=== PATIENT | male | born 1955 | race Caucasian/White ===

== ENCOUNTER 2019-02-15 15:11 | Observation (INO) ==
--- NOTE | 2019-02-15 16:50 | Diag Imaging Result Doc PS360 ---
EXAM: CT HEAD/C-SPINE W/O CONTRAST INDICATION: fall with altered mental status TECHNIQUE: This exam was performed using automated exposure control, adjustment of mA or kV according to patient size, and/or use of iterative reconstruction technique. COMPARISON: None. FINDINGS: Head: There is no definite acute infarct given the limited sensitivity of CT versus MRI. There is no discrete intracranial mass, mass effect, or intracranial hemorrhage. There is a small posterior scalp hematoma that is partially out of the [id number]. The calvaria is intact. C-spine: There is multilevel degenerative disc disease with loss of disc spine is high and marginal osteophyte formation that is most significant at C5-C6 where there is moderate bony central canal narrowing. Otherwise, there is no discrete fracture, subluxation, or intrinsic osseous lesion. The surrounding soft tissues are essentially unremarkable. IMPRESSION: 1.No evidence of acute intracranial pathology. 2.Multilevel degenerative disc disease but no evidence of fracture or other definite acute C-spine injury. Electronically signed by Efren Palomares 02/15/2019 4:48 PM
--- NOTE | 2019-02-15 16:58 | Diag Imaging Result Doc PS360 ---
EXAM: TRAUMA SHOULDER RIGHT INDICATION: fall with right shoulder pain TECHNIQUE: 4 views COMPARISON: None. FINDINGS: There are humeral head bone anchors indicating prior rotator cuff repair. There is a subtle linear lucency that traverses the scapula. This may represent a nutrient channel as it cannot be seen on the scapular Y view. A nondisplaced fracture is possible, however. There is no other discrete fracture, dislocation, or significant intrinsic osseous lesion. The visualized joint spaces are essentially unremarkable. The surrounding soft tissues are essentially unremarkable. IMPRESSION: Vague linear lucency traversing the inferior scapula. Please see above discussion. Electronically signed by Efren Palomares 02/15/2019 4:56 PM
--- NOTE | 2019-02-15 16:59 | Diag Imaging Result Doc PS360 ---
EXAM: CHEST-PORTABLE INDICATION: trauma, right shoulder pain TECHNIQUE: One view COMPARISON: None. FINDINGS: The lungs are grossly clear. There is no discrete pleural fluid collection or pneumothorax. The cardiomediastinal silhouette and central vasculature are grossly unremarkable. IMPRESSION: No evidence of acute pathology by plain radiograph. Electronically signed by Efren Palomares 02/15/2019 4:56 PM
[2019-02-15 17:01] LABS: BASO# 0.02 X1000 (0.0-0.2); BASO% 0.2 % (0.0-0.8); EOS# 0.01 X1000 (0.0-0.7); EOS% 0.1 % (0.0-10.0); HEMATOCRIT 42.7 % (42.0-52.0); HEMOGLOBIN 14.4 g/dL (14.0-18.0); IMM GRAN# 0.05 X1000 (0.0-0.04); IMM GRAN% 0.4 % (0.0-0.5); LYMPH# 1.33 X1000 (1.2-3.4); LYMPH% 10.1 % (20.5-51.1); MCHC 33.7 g/dL (33-37); MCV 91.8 FL (81-99); MONO# 0.63 X1000 (0.11-0.59); MONO% 4.8 % (1.7-9.3); MPV 9.4 FL (7.4-10.4); NEUT# 11.19 X1000 (1.4-6.5); NEUT% 84.4 % (42.2-75.2); PLT 193 X1000 (130-400); RBC 4.65 XMIL (4.7-6.1); RDW 12.6 % (11.5-14.5); WBC 13.23 X1000 (4.8-10.8)
[2019-02-15 17:14] LABS: INR 0.97
[2019-02-15 17:21] LABS: AGAP 17; ALB/GLOB RATIO 1.7; ALBUMIN 4.1 g/dL (3.5-5.0); ALKALINE PHOSPHATASE 102 U/L (32-122); BUN 19 mg/dL (8-22); CALCIUM 8.8 mg/dL (8.8-10.2); CHLORIDE 101 mmol/L (98-107); COSMO 283; ESTIMATED GFR > 60; GLUCOSE 125 mg/dL (70-104); GOT 41 U/L (10-34); GPT 32 U/L (10-44); POTASSIUM 3.3 mmol/L (3.5-5.1); SODIUM 140 mmol/L (136-145); TCO2 22 mmol/L (25-35); TOTAL BILIRUBIN 0.61 mg/dL (0.20-1.00); TOTAL PROTEIN 6.5 g/dL (6.3-8.3)
--- NOTE | 2019-02-15 17:21 | PROVIDER DOCUMENTATION ---
This chart was entered by Ann Villarreal Scribe, acting as scribe for Joel Anguiano MD. HPI-Head Injury - General Chief Complaint: Fall Stated Complaint: FALL/HEAD INJURY Time Seen by Provider: 02/15/19 15:29 Source: patient, family ( and Son) Allergies/Adverse Reactions: Patient Allergies Allergy/AdvReac Type Severity Reaction Status Date / Time No Known Allergies Allergy Verified 02/15/19 17:16 - History of Present Illness-Head Injury Nature of Presenting Problem: 63 y/o male presents to the ED with head injury and occipital scalp laceration and forgetfulness after fall from ladder. Son states he found the patient on the ground with the ladder he was using displaced. states she received the call about fall around 1430 hours. His tetanus status is unknown Head Injury Location: reports: occipital Other injuries associated with incident:: reports: head Quality of Pain: reports: none Onset/Duration: reports: other (1430) Timing: reports: still present Method of Injury: reports: fell Any recent trauma/injury?: reports: to head Loss of Consciousness: unsure Injury Associated Symptoms: reports: joint pain (right shoulder). denies: back/neck pain, headaches Similar Symptoms Previously?: No Recently seen or treated by another doctor?: No Review of Systems - Adult - REVIEW OF SYSTEMS - ADULT Constitutional: reports: no symptoms reported Eyes: reports: no symptoms reported Ears, Nose, Mouth & Throat: denies: tinnitus, epistaxis, mouth/dental pain Cardiovascular: reports: no symptoms reported Respiratory: reports: no symptoms reported Gastrointestinal: denies: diarrhea, nausea, vomiting Genitourinary: reports: no symptoms reported Musculoskeletal: reports: joint pain (right shoulder pain). denies: back pain, neck pain Integumentary: reports: other (laceration to occipital scalp). denies: hives, rash Neurological: reports: other (forgetful). denies: dizziness/vertigo, headache/migraines, slurred speech Psychiatric: reports: no symptoms reported Endocrine: reports: no symptoms reported Hematologic/Lymphatic: reports: no symptoms reported Allergic/Immunologic: reports: no symptoms reported All Other Systems: Reviewed and Negative Past History - Adult - PAST MEDICAL HISTORY-ADULT Review of Records: reports: Old Records Reviewed, Nursing Assessment Review, Medications Reviewed - IMMUNIZATION STATUS Childhood Immunizations: See Nurse Assessment Flu Vaccine: See Nurse Assessment - SOCIAL HISTORY Smoking: non-smoker Substance Use: none/never Living Situation: family Physical Exam- Neurological - Physical Exam-Neuro Initial Vital Signs Reviewed: Yes General Appearance: alert, other (oriented to time, place and person but cannot name the President) HENMT: TMs normal (no hemotympanium), other (4 cm laceration to occipital scalp with minimal bleeding) Head Injury: other (4 cm laceration to occipital scalp with minimal bleeding). negative: Callaway's Sign, raccoon eyes Neck: full range of motion, supple. negative: other (vertebral tenderness) Respiratory: lungs clear, normal breath sounds. 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 laceration to occipital scalp) - Glascow Coma Scale Best Eye Response: (4) open spontaneously Best Verbal Response: (5) oriented Best Motor Response: (6) obeys commands Progress - PLAN OF CARE/RESULTS Progress/Plan/Lab Results: Vital Signs - 8 hr 02/15/19 15:16 02/15/19 16:54 Temperature 97.4 F L Pulse Rate 70 70 Respiratory Rate 18 14 Blood Pressure 123/74 127/79 O2 Sat by Pulse Oximetry 95 99 Laboratory Results - last 24 hr 02/15/19 02/15/19 02/15/19 16:44 16:44 16:44 WBC 13.23 H RBC 4.65 L Hgb 14.4 Hct 42.7 MCV 91.8 MCH 31.0 MCHC 33.7 RDW Std Deviation 12.6 Plt Count 193 MPV 9.4 Immature Gran % (Auto) 0.4 Neut % (Auto) 84.4 H Lymph % (Auto) 10.1 L [place]enton % (Auto) 4.8 Eos % (Auto) 0.1 Baso % (Auto) 0.2 Immature Gran # (Auto) 0.05 H Neut # (Auto) 11.19 H Lymph # (Auto) 1.33 Denton # (Auto) 0.63 H Eos # (Auto) 0.01 Baso # (Auto) 0.02 PT INR Sodium 140 Potassium 3.3 L Chloride 101 Carbon Dioxide 22 L Anion Gap 17 BUN 19 Creatinine 1.0 Estimated GFR/1.73 m2 > 60 BUN/Creatinine Ratio 19 Glucose 125 H Calculated Osmolality 283 Calcium 8.8 Total Bilirubin 0.61 AST 41 H ALT 32 Alkaline Phosphatase 102 Creatine Kinase 255 H Creatine Kinase Index 2.3 CK-MB (CK-2) 5.77 H Total Protein 6.5 Albumin 4.1 Globulin 2.4 Albumin/Globulin Ratio 1.7 Plasma/Serum Ethyl Alc 23 H Blood Type Antibody Screen 02/15/19 02/15/19 16:44 16:44 WBC RBC Hgb Hct MCV MCH MCHC RDW Std Deviation Plt Count MPV Immature Gran % (Auto) Neut % (Auto) Lymph % (Auto) Denton % (Auto) Eos % (Auto) Baso % (Auto) Immature Gran # (Auto) Neut # (Auto) Lymph # (Auto) Denton # (Auto) Eos # (Auto) Baso # (Auto) PT 13.0 INR 0.97 Sodium Potassium Chloride Carbon Dioxide Anion Gap BUN Creatinine Estimated GFR/1.73 m2 BUN/Creatinine Ratio Glucose Calculated Osmolality Calcium Total Bilirubin AST ALT Alkaline Phosphatase Creatine Kinase Creatine Kinase Index CK-MB (CK-2) Total Protein Albumin Globulin Albumin/Globulin Ratio Plasma/Serum Ethyl Alc Blood Type O NEGATIVE Antibody Screen NEGATIVE Orders Category Date Time Status Laceration Set up DIRECTED Care 02/15/19 15:34 Active Nursing [[facility] [place]. NRSG Communication Order] DIRECTED Care 02/15/19 15:35 Ac tive Saline Loc NOW Care 02/15/19 15:30 Active CHEST-PORTABLE [RAD] Stat Exams 02/15/19 15:[address] HEAD/C-SPINE W/O CONTRAST [CT] Stat Exams 02/15/19 15:32 Completed TRAUMA SHOULDER RIGHT [RAD] Stat Exams 02/15/19 15:32 Completed ALCOHOL BLOOD Stat Lab 02/15/19 16:44 Completed CBC WITH ELECTRONIC DIFF [HEME] Stat Lab 02/15/19 16:44 Completed CK PROFILE [SP CHEM] Stat Lab 02/15/19 16:44 Completed COMPREHENSIVE METABOLIC PANEL [CHEM] Stat Lab 02/15/19 16:44 Completed PROTIME WITH INR [COAG] Stat Lab 02/15/19 16:44 Completed TYPE & SCREEN [BBK] Stat Lab 02/15/19 16:44 Completed URINALYSIS W/POSS RFLX CULT [URINALYSIS] Stat Lab 02/15/19 15:29 Uncollected URINE DRUG SCREEN Stat Lab 02/15/19 15:30 Uncollected Acetaminophen [Ofirmev 1000 mg/Isotonic Soln] Med 02/15/19 18:15 Active 1,000 mg in 100 ml IV Q6H Diph,Pertuss(Acell),Tet Vac/Pf [Boostrix Vaccine] Med 02/15/19 17:24 Discontinued 0.5 ml IM .ONCE ONE EKG [EKG] Stat Ther 02/15/19 15:34 Draft Result Diagrams: 02/15/19 16:44 02/15/19 16:44 - REASSESSMENT Reassessment #1 Time Reassessed: 17:19 Status: unchanged (Patient is awake, follows commands. Son states that he is begining to remember things but is concern because he does not remember a lot. Discussed investigations: Neg CT head and c-spine and suspicion for non displaced scapular #) - XRAY 1 XRAY Study: Chest (EXAM: CHEST-PORTABLE INDICATION: trauma, right shoulder pain TECHNIQUE: One view COMPARISON: None. FINDINGS: The lungs are grossly clear. There is no discrete pleural fluid collection or pneumothorax. The ca rdiomediastinal silhouette and central vasculature are grossly unremarkable. IMPRESSION: No evidence of acute pathology by plain radiograph. Electronically signed by Efren Palomares 02/15/2019 4:56 PM) 2 XRAY: Right XRAY Study: Shoulder (EXAM: TRAUMA SHOULDER RIGHT INDICATION: fall with right shoulder pain TECHNIQUE: 4 views COMPARISON: None. FINDINGS: There are humeral head bone anchors indicating prior rotator cuff repair. There is a subtle linear lucency that traverses the scapula. This may represent a nutrient channel as it cannot be seen on the scapular Y view. A nondisplaced fracture is possible, however. There is no other discrete fracture, dislocation, or significant intrinsic osseous lesion. The visualized joint spaces are essentially unremarkable. The surrounding soft tissues are essentially unremarkable. IMPRESSION: Vague linear lucency traversing the inferior scapula. Please see above discussion. Electronically signed by Efren Palomares 02/15/2019 4:56 PM) - CT/MRI 1 CT Study: Cervical Spine, Head Impression: See EMR Report (EXAM: CT HEAD/C-SPINE W/O CONTRAST INDICATION: fall with altered mental status TECHNIQUE: This exam was performed using automated exposure control, adjustment of mA or kV according to patient size, and/or use of iterative reconstruction technique. COMPARISON: None. FINDINGS: Head: There is no definite acute infarct given the limited sensitivity of CT versus MRI. There is no discrete intracranial mass, mass effect, or intracranial hemorrhage. There is a small posterior scalp hematoma that is partially out of the [id number]. The calvaria is intact. C-spine: There is multilevel degenerative disc disease with loss of disc spine is high and marginal osteophyte formation that is most significant at C5-C6 where there is moderate bony central canal narrowing. Otherwise, there is no discrete fracture, subluxation, or intrinsic osseous lesion. The surrounding soft tissues are essentially unremarkable. IMPRESSION: 1.No evidence of acute intracranial pathology. 2.Multilevel degenerative disc disease but no evidence of fracture or other definite acute C-spine injury. Electronically signed by Efren Palomares 02/15/2019 4:48 PM) - CONSULTS/PCP/HOSPITALIST Notification #1 *Consult/PCP/Hospitalist*: Patient pcp Dr Martini Time Discussed: 18:27 Consult Disposition: Admit (will come to admit for observation) Procedures - LACERATION/WOUND REPAIR/FB Occipital Wound Location: Other: occipital Wound's Depth, Shape: superficial, linear Wound Explored/Foreign Body: clean Irrigated with Saline?: Yes Prepped with: Betadine Wound Debrided: none Wound Repaired with: Hooker-Large (5 jennifer applied) Sterile Dressing Applied?: Yes Splint Applied?: No Sling Applied?: No Procedure Comment: Patient tolerated procedure. done without anesthesia. No complication Departure - Departure Date of Disposition Decision: 02/15/19 Time of Disposition Decision: 18:24 DIAGNOSIS: Head injury due to trauma Qualifiers: Encounter type: initial encounter Qualified Code(s): S09.90XA - Unspecified injury of head, initial encounter Concussion Qualifiers: Encounter type: initial encounter Loss of consciousness presence/duration: without LOC Qualified Code(s): S06.0X0A - Concussion without loss of cons ciousness, initial encounter Occipital scalp laceration Qualifiers: Encounter type: initial encounter Qualified Code(s): S01.01XA - Laceration without foreign body of scalp, initial encounter Scapula fracture Qualifiers: Encounter type: initial encounter Scapula location: body Fracture type: closed Fracture alignment: nondisplaced Laterality: right Qualified Code(s): S42.114A - Nondisplaced fracture of body of scapula, right shoulder, initial encounter for closed fracture Disposition: ADMITTED INPATIENT 09 Certified Medical Emergency: Emergent Condition: Good Referrals and Follow-Ups: Luis M Martini MD [Primary Care Provider] - - Critical Care Note This patient required my direct & personal management of CC.: No Attestation - Physician/ KENROY Attestation Patient care was provided by Advanced Practice Provider:: No The physician spent face to face time with patient:: Yes Advanced Practice Provider documentation review:: Supervising physician onsite and consulted in the evaluation and care of this patient. The physician did have a face to face encounter with the patient. This chart was documented by the indicated scribe, (Ann Villarreal, Scr aguila) and accurately reflects the services I performed and decisions made by me, Joel Anguiano MD, as attested by the provider's signature.
[2019-02-15] MEDS ORDERED: BOOSTRIX VACCINE IM ONE (17:24)
[2019-02-15 17:26] LABS: CK PROFILE 255 U/L (24-204)
[2019-02-15 17:46] LABS: CK INDEX 2.3 (0.0-2.5); CK-MB 5.77 ng/mL (0.0-5.0)
--- NOTE | 2019-02-15 17:48 | EKG Report ---
Test Performed on : 02/15/2019 5:35:45 PM Test Reason : CP Blood Pressure : / mmHG Vent. Rate : 077 BPM Atrial Rate : 076 BPM P-R Int : 000 ms QRS Dur : 096 ms QT Int : 402 ms P-R-T Axes : 000 068 046 degrees QTc Int : 454 ms Accelerated Junctional rhythm. Abnormal ECG No previous ECGs available Unconfirmed Result
[2019-02-15] MEDS ORDERED: OFIRMEV 1000 MG/ISOTONIC SOLN 1,000 MG/100 ML BOTTLE IV SCH (18:15)
[2019-02-15] MEDS ORDERED: TYLENOL PO ONE (18:59)
[2019-02-15 19:39] LABS: URINE SOURCE CLEAN CATCH
[2019-02-15 19:44] LABS: BILIRUBIN URINE NEGATIVE (NEGATIVE); BLOOD URINE TRACE (NEGATIVE); COLOR YELLOW; GLUCOSE URINE NEGATIVE (NEGATIVE); KETONE URINE 20 mg/dL (NEGATIVE); LEUKOCYTES URINE NEGATIVE (NEGATIVE); NITRITE URINE NEGATIVE (NEGATIVE); PROTEIN URINE 30 mg/dL (NEGATIVE); SP GRAVITY URINE 1.024; TURBIDITY URINE CLEAR (CLEAR); UROBILINOGEN URINE NORMAL (NORMAL)
[2019-02-15 19:52] LABS: UR AMPHETAMINES QUAL NONE DETECTED (NONE DETECT); UR BARBITUATES QUAL NONE DETECTED (NONE DETECT); UR BENZODIAZEPIN QUAL NONE DETECTED (NONE DETECT); UR CANNABINOIDS QUAL NONE DETECTED (NONE DETECT); UR COCAINE QUAL NONE DETECTED (NONE DETECT); UR METHADONE QUAL NONE DETECTED (NONE DETECT); UR OPIATES QUAL NONE DETECTED (NONE DETECT); UR OXYCODONE QUAL NONE DETECTED (NONE DETECT); UR PCP QUAL NONE DETECTED (NONE DETECT)
[2019-02-15 19:55] LABS: UR EPITHELIAL CELLS <10 /HPF (<10); URINE BACTERIA NEGATIVE /HPF; URINE RBC <10 /HPF (<10); URINE WBC <10 /HPF (<10)
--- NOTE | 2019-02-15 20:05 | HISTORY AND PHYSICAL ---
CHIEF COMPLAINT: Fall. HISTORY OF PRESENT ILLNESS: The patient is a 63-year-old white male followed in my medical practice who was brought to the ER by his sons. Apparently the patient was working in his shop this afternoon when he got up on a ladder and was changing a light bulb. The patient does not recall the accident itself but his notes that she was called by the patient on his cellphone and he had told her he had suffered a fall and for her to come and check on him. When she got there he was laying over near a pool of blood and had a laceration to the left upper occipital scalp area and did not recall the event. He was complaining of pain in his right shoulder and right pelvic area. The patient did not recall the actual accident or what happened at all. He was brought into the emergency room and the laceration has been stapled left upper occipital area. He still has amnesia to the event and x-ray right shoulder shows possible nondisplaced linear hairline fracture of right scapula. Otherwise, CT scan of the head and neck are negative except for degenerative changes which are chronic at the neck. Chest x-ray is negative. MEDICATIONS PRIOR TO ADMISSION: Requip 2 mg p.o. at bedtime, Neurontin 300 mg p.o. at bedtime, Lasix 40 mg p.o. q.a.m., hydralazine 50 mg p.o. daily, Micardis 80 mg p.o. daily, Norvasc 2.5 mg p.o. daily, Mobic 15 mg p.o. daily. ALLERGIES: NKDA. PAST MEDICAL HISTORY: 1. Hypertension diagnosed 2009. 2. History of kidney stones numerous passed spontaneously. 3. Glaucoma diagnosed 2015. 4. Restless legs syndrome longstanding. 5. Diverticulosis diagnosed July 2017. 6. Chronic venous stasis lower extremities left greater than right, patient wears support hose for this. PAST SURGICAL HISTORY: 1. Right inguinal hernia repair 1995. 2. Right rotator cuff surgery June 2011. 3. Right knee arthroscopy 2009. 4. Right pump bump surgery August 2013. 5. Vein stripping 2013. IMMUNIZATIONS: 1. Shingrix 1 and 2 given. 2. Zostavax given November 2014, influenza given November 2017. FAMILY HISTORY: Notable for diabetes mellitus in grandfather and 3 aunts, grandfather with stroke. No hypertension in the family. NE in his father at age 75, mother with scleroderma, multiple myeloma in his grandmother and mother, father with PE. SOCIAL HISTORY: The patient lives in [place]. He is . He has 2 sons. 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 Prior history of working in [employer]. No smoking history, extremely rare alcohol usage. REVIEW OF SYSTEMS: Negative except as above. PHYSICAL EXAMINATION: VITAL SIGNS: Show pulse 70, respirations 19, blood pressure 124/71, O2 saturation 95 to 100 percent on room air. SKIN: Laceration about 3 to 4 cm in length left upper occipital area. Sammi in place. No other significant bruising identified. PERRL. EOMI. Sclerae clear. TMs normal. OP no redness, tongue in the midline. NECK: No LA, JVD, thyromegaly or bruits. No particular point tenderness. CV: RRR without murmur. LUNGS: CTA. BACK: There is tenderness to palpation right scapular area and diffusely about the right shoulder with decreased ROM at the right shoulder. ABDOMEN: Protuberant, soft, NT, ND, no mass, no HSM. Negative pelvic tilt. /RECTAL: Deferred. EXTREMITIES: One to 2+ left lower extremity edema at baseline with chronic venous stasis changes lower extremities left greater than right. Trace to 1+ right lower extremity edema. No calf tenderness or cords. NEURO: Cranial nerves 2-12 are intact. He moves all extremities. Has some difficulty moving the right shoulder and arm with some tenderness about his right shoulder. The patient has amnesia to the event but otherwise recalls things from the past such as that his Requip is being reclassified, he is not going to be able to get it any longer. Chest x-ray is negative. CT scan of head and C-spine reveals no abnormality except for multilevel degenerative disk disease, chronic shoulder x-ray on the right reveals hairline fracture right lower scapular area. EKG reveals sinus rhythm with some artifact. No acute ST changes. White count 13.2, hemoglobin 14.4, hematocrit 42.7, MCV 91.8, platelets 193,000, neutrophils 84, lymphocytes 10. PT 13, INR 0.97. Sodium 140, potassium 3.3, chloride 101, CO2 22, BUN 19, creatinine 1.0, glucose 125, calcium 8.8, total bilirubin 0.61, AST 41, ALT 32, alkaline phosphatase 102, total CK 255, CK index 2.3, CK-MB 5.7, total protein 6.5. Urinalysis is not obtained. Serum alcohol 23. ASSESSMENT: 1. Concussion. 2. Laceration left occipital area. 3. Head trauma. 4. Fall mechanical. 5. Hairline fracture nondisplaced right scapula. 6. Right shoulder pain, rule out rotator cuff tear. 7. Restless legs syndrome. 8. Chronic venous insufficiency and venous stasis dermatitis lower extremities left greater than right. 9. Hypertension. 10. History of kidney stones. 11. Glaucoma. 12. Diverticulosis. PLAN: Will admit the patient for 23-hour observation. Obtain neurological checks frequently. Continue his home medications except leave him off the Neurontin at this point. Give him Tylenol as needed. Hold the Mobic. Will ask Dr. Ochoa to evaluate his shoulder tomorrow morning. cc: Luis M Martini MD
[2019-02-15] MEDS ORDERED: REQUIP PO SCH (21:00)
[2019-02-16] MEDS: TYLENOL PO PRN ×2 (04:02→14:44)
[2019-02-16] MEDS ORDERED: NORVASC PO SCH (09:00)
[2019-02-16] MEDS ORDERED: LASIX PO SCH (09:00)
[2019-02-16] MEDS ORDERED: MICARDIS PO SCH (09:00)
[2019-02-16 11:42] VITALS: BP 127/75
--- NOTE | 2019-02-16 14:15 | PROGRESS NOTE ---
DATE: 02/16/2019 SUBJECTIVE: The patient is overall doing well. He still cannot remember the events of the fall, but he remembers fishing trips and other events without difficulty. He has had no major headache. No major nausea. Did have a little bit of nausea late yesterday, that has resolved. OBJECTIVE: Vital Signs: Afebrile. Vital signs stable. CV: RRR without murmur. Lungs: CTA. Extremities: No edema. Mild contusion to right elbow. There is pain about the right shoulder with decreased ROM above the head at the right shoulder. ASSESSMENT: 1. Concussion. 2. Laceration, left occipital area, with jennifer in place. 3. Head trauma from a fall. 4. Mechanical fall. 5. Hairline fracture, nondisplaced, right subscapular. 6. Right shoulder pain, rule out rotator cuff tear on the right. 7. Restless legs syndrome. 8. Chronic venous insufficiency, lower extremities, left greater than right, with some chronic venous stasis dermatitis. 9. Hypertension. 10. History of kidney stones. 11. Glaucoma. 12. Diverticulosis. PLAN: I encouraged the patient to gradually increase his activity level, but start out extremely slow. I advised him not to be at any heights for least a week. Notify us if he has development of headaches or nausea or vomiting. Otherwise, recheck in 1 week. Will consider removal of the jennifer from his head at that time. He will cleanse the area well with soap and water frequently. Monitor for signs of infection. He received a tetanus injection in the ER. He will follow up in my office in 1 week, and resume his home medications. Tylenol as needed. cc: Luis M Martini MD
--- NOTE | 2019-02-16 14:21 | Diag Imaging Result Doc PS360 ---
EXAM: ELBOW COMPLETE RIGHT HISTORY: Elbow swelling/pain TECHNIQUE: Three views COMPARISON: None. FINDINGS: The lateral film is not taken in 90 degrees. No fracture. No dislocation. IMPRESSION: No acute bony injury identified. Follow-up films recommended. Electronically signed by Bryan Sanchez 02/16/2019 2:18 PM
--- NOTE | 2019-02-16 15:56 | ORTHOPAEDICS CONSULTATION ---
DATE: 02/16/2019 CHIEF COMPLAINT: Fall with right shoulder, right elbow pain. HISTORY OF PRESENT ILLNESS: This is a 63-year-old male who came to the emergency department by his family. He was working outside in his shop and climbed up onto the ladder and started changing light bulb but then the patient suddenly woke up on the floor. He complained of pain in right shoulder and right pelvic area. The patient cannot remember the accident. Orthopedics consulted to come see the patient for his right scapular fracture and elbow pain. ALLERGIES: No known drug allergies. REVIEW OF SYSTEMS: A 14 point review of systems performed. Pertinent positives listed in the HPI. PAST MEDICAL HISTORY: Includes hypertension, glaucoma, restless legs syndrome, diverticulosis, chronic venous stasis ulcers, and history of kidney stones. PAST SURGICAL HISTORY: He has had a right inguinal hernia repair, right rotator cuff surgery in June 2011 Dr. Jiménez, right knee arthroscopy 2009, vein stripping in 2013. SOCIAL HISTORY: Patient is and has 2 sons. He denies smoking and occasional alcohol usage. PHYSICAL EXAMINATION: Vital Signs: Temperature 98.7 degrees, pulse rate 72, respiratory rate 14, blood pressure 137/75, oxygen saturation 97% on room air. General: Patient is awake, alert and talking to the nursing staff sitting on side the bed. HEENT: Head is atraumatic with a small laceration to a left upper occipital area. There is some jennifer holding this laceration together. Neck: Supple. Cardiovascular: Regular rate and rhythm. Lungs: There is equal chest expansion, rise and fall. Abdomen: Soft, nontender. Extremities: Right upper extremity exam: There is good range of motion to bilateral upper extremities. There is decreased strength to the right rotator cuff. There is tenderness along the right scapular region. There is also tenderness along the acromioclavicular joint. There is good radial pulses. There is good sensation to bilateral upper extremities. There is some notable swelling with some tenderness to the right lateral elbow. There is good range of motion. LABS: White blood cell 13.23, hemoglobin 14.4, hematocrit 42.7, platelets 193,000. INR 7.97. Sodium 140, potassium 3.3, chloride 101, BUN 19, creatinine 1.0, glucose 125. Urine showed trace amounts of blood. UDS was negative except for alcohol, his alcohol level 23. ASSESSMENT: 1. Concussion with loss of consciousness, fall with right elbow pain and right scapular fracture. 2. Possible rotator cuff injury, right upper extremity. PLAN: We will plan to place patient in a shoulder immobilizer at this time. He will need to obtain an MRI study of the right shoulder when he gets out of the hospital. We will go ahead and get an x-ray of his right elbow at this time to rule out any acute fracture. He reports that he usually sees Dr. Jiménez and he might possibly be going back to see him instead of coming to see us and I told the patient that was fine. We will check back on him later on his x-ray see if anything else shows up. Dictated by ABAD Jackson for Efren Madden MD cc: ABAD Jackson MD Stephen W. Harbin, MD MTDMatilde
[2019-02-16] MEDS ORDERED: ROBAXIN PO SCH (17:00)
[2019-02-16] MEDS ORDERED: APRESOLINE PO SCH (21:00)
== END 2019-02-16 15:17 | disposition home or self-care (01) ==
LOC: ED 15:11 → 3N 15:12 → INTOOBSV 15:12
PROVIDERS: ADMIT Family Medicine; ATTEND Family Medicine